=== PATIENT | female | born 1985 | race Caucasian/White ===

== ENCOUNTER 2019-01-23 09:48 | Emergency (ER) | payer OTHER ==
[2019-01-23 09:58] VITALS: BP 141/70; PULSE 96; TEMP 98.6; BMI 31.9
[2019-01-23] MEDS ORDERED: ALBUTEROL SO4 2.5/IPRATROPIUM 0.5 INH SOL 3 ML VIAL.NEB. NEB ONE ×2 (10:19→10:25)
--- NOTE | 2019-01-23 10:32 | PDOC ---
History of Present Illness - General Chief Complaint: Respiratory Stated Complaint: COUGHING Time Seen by Provider: 01/23/19 10:10 History Source: Patient Exam Limitations: No Limitations - History of Present Illness Initial Comments: 01/23/19 10:21 33 yo F w/ no sig PMHx comes in c/o 4 days of a cough with chest pain and abck pain when she coughs. (+)blood tinged sputum a couple of times, (+)dercease in appetite, decrease in PO intake, no decrease in urination, no abdominal pain, (+ )2 episodes of NBNB vomiting, 1 episode of non bloody loose stools, subjective fever, no other compliants today, no neck pain/stiffness, no rash, no known sick contacts, (+)recent travel to [place], NO. 01/23/19 10:33 Past History - Past Medical History Allergies/Adverse Reactions: Allergies Allergy/AdvReac Type Severity Reaction Status Date / Time No Known Allergies Allergy Verified 01/23/19 09:50 Home Medications: Ambulatory Orders Albuterol Sulfate Inhaler - [Ventolin HFA Inhaler -] 1 - 2 inh PO Q4H 3 Days #1 inhaler 01/23/19 Fluticasone Prop 0.05% Nasal [Flonase -] 1 spray NS DAILY 20 Days #1 bot Sodium Chloride [Saline Nasal [place]] 30 ml NS QID 4 Days #1 bot 01/23/19 CVA: Yes (tia) COPD: No - Suicide/Smoking/Psychosocial Hx Smoking History: Never smoked Have you smoked in the past 12 months: Yes Number of Cigarettes Smoked Daily: 1 (Smokes 1-2 cigarettes/month while drinking ) Hx Alcohol Use: Yes (occasionally) Drug/Substance Use Hx: No Substance Use Type: None Hx Substance Use Treatment: No Review of Systems - Review of Systems Able to Perform ROS?: Yes Constitutional: Yes: Chills, Fever, Malaise. No: Night Sweats HEENTM: No: Eye Pain, Recent change in vision, Throat Pain Respiratory: Yes: Cough. No: Shortness of Breath Cardiac (ROS): Yes: Chest Tightness. No: Palpitations ABD/GI: Yes: Vomiting. No: Diarrhea, Nausea, Abdominal cramping : No: Dysuria, Hematuria Musculoskeletal: No: Back Pain Integumentary: No: Rash Neurological: No: Headache, Numbness, Dizziness Psychiatric: Yes: Change in Appetite Endocrine: No: Unexplained Weight Loss *Physical Exam - Vital Signs Last Vital Signs Temp Pulse Resp BP Pulse Ox 98.6 F 96 H 20 141/70 99 01/23/19 09:49 01/23/19 09:49 01/23/19 09:49 01/23/19 09:49 01/23/19 09:49 - Physical Exam General Appearance: Yes: Nourished. No: Apparent Distress HEENT: positive: DEIDRE, Normal ENT Inspection, Muffled/Hoarse voice (hoarse), Pharyngeal Erythema. negative: Pale Conjunctivae, Scleral Icterus (R), Scleral Icterus (L), Tonsillar Exudate, Tonsillar Erythema, TM Erythema Neck: positive: Supple. negative: Tender, Decreased range of motion, Tender midline Respiratory/Chest: positive: Lungs Clear, Normal Breath Sounds. negative: Respiratory Distress, Accessory Muscle Use, Decreased Breath Sounds, Wheezing Cardiovascular: positive: Regular Rhythm, Regular Rate Gastrointestinal/Abdominal: positive: Normal Bowel Sounds, Soft. negative: Tender Musculoskeletal: positive: Normal Inspection. negative: CVA Tenderness, Decreased Range of Motion Extremity: positive: Normal Capillary Refill, Normal Inspection, Normal Range of Motion. negative: Tender, Pedal Edema Integumentary: positive: Normal Color, Dry. negative: Jaundice, Rash Neurologic: positive: Fully Oriented, Alert, Normal Mood/Affect Moderate Sedation - Procedure Monitoring Vital Signs: Procedure Monitoring Vital Signs Temperature 98.6 F 01/23/19 09:49 Pulse Rate 96 H 01/23/19 09:49 Respiratory Rate 20 01/23/19 09:49 Blood Pressure 141/70 01/23/19 09:49 O2 Sat by Pulse Oximetry (%) 99 01/23/19 09:49 ED Treatment Course - RADIOLOGY Radiology Studies Ordered: Category Date Time Status CHEST PA & LAT [RAD] Stat Radiology 01/23/19 10:19 Ordered Medical Decision Making - Medical Decision Making 01/23/19 10:35 33 yo w/ viral syndrome. R?O bronchitis Vs pneumonia. WIll do a neb trial, CXR and reassess 01/23/19 11:45 Pt feels a lot better after richie, able to breath better, no chest tightness. CXR no pneumonia WIll discharge with albuterol flonase, saline, PMD follow up Return for worsening/concerning symptoms Pt verbalizes understanding and agrees with plan *DC/Admit/Observation/Transfer Diagnosis at time of Disposition: Bronchitis - Discharge Dispostion Disposition: HOME Condition at time of disposition: Stable - Prescriptions Prescriptions: Albuterol Sulfate Inhaler - [Ventolin HFA Inhaler -] 1 - 2 inh PO Q4H 3 Days #1 inhaler Fluticasone Prop 0.05% Nasal [Flonase -] 1 spray NS DAILY 20 Days #1 bot Sodium Chloride [Saline Nasal [place]] 30 ml NS QID 4 Days #1 bot - Referrals - Patient Instructions Printed Discharge Instructions: DI for Acute Bronchitis Additional Instructions: Rest and drink plenty of fluids. Return for worsening/concerning symptoms. FOllow up with your regular doctor in 1-2 days. - Post Discharge Activity
== END 2019-01-23 11:46 | disposition home or self-care (01) ==
LOC: JERFT 09:48 → JER 09:48 → JERFT 11:46
PROC: 3E0F7GC Introduction of Other Therapeutic Substance into Respiratory Tract, Via Natural or Artificial Opening (ICD-10-PCS; principal; 2019-01-23)
DX: J40 Bronchitis, not specified as acute or chronic (principal)
CPT/HCPCS: 71046-TC-FY; 84703; 94640; 99281-25

== ENCOUNTER 2024-09-20 17:57 | Emergency (ER) | payer BC, OTHER ==
[2024-09-20 18:16] VITALS: TEMP 98.6; BMI 34.5
[2024-09-20 20:02] VITALS: BP 127/78; PULSE 80; RESP 16
[2024-09-20 20:24] LABS: POTASSIUM 5.3 mmol/L (3.5-5.1)
[2024-09-20 20:26] LABS: BLOOD UREA NITROGEN 9.1 mg/dL (7-18); CALCIUM 9.2 mg/dL (8.5-10.1); MAGNESIUM 2.1 mg/dL (1.8-2.4)
[2024-09-20 20:30] LABS: CREATININE 0.9 mg/dL (0.55-1.3); PHOSPHOROUS 3.5 mg/dL (2.5-4.9)
[2024-09-20] MEDS ORDERED: KETOROLAC TROMETHAMINE 15 MG/ML VIAL ONE (20:42)
[2024-09-20] MEDS ORDERED: PROCHLORPERAZINE INJECTION 10 MG/2 ML VIAL ONE (20:42)
[2024-09-20] MEDS ORDERED: ACETAMINOPHEN 325 MG TABLET (FP) ONE (20:42)
[2024-09-20] MEDS: PROCHLORPERAZINE INJECTION 10 MG/2 ML VIAL IVPB ONE (20:50)
[2024-09-20] MEDS: ACETAMINOPHEN 500 MG TABLET (FP) PO ONE (20:50)
[2024-09-20] MEDS: KETOROLAC TROMETHAMINE 30 MG/1 ML VIAL IVPUSH ONE (20:50)
[2024-09-20 20:51] LABS: HEMATOCRIT 40.1 % (32.4-45.2); HEMOGLOBIN 13.6 GM/dL (10.7-15.3); LYMPH % 31.1 % (8-40); MCH 30.3 pg (25.7-33.7); MCHC 33.9 g/dl (32.0-36.0); MEAN CELL VOLUME 89.6 fl (80-96); MONO % 6.2 % (3.8-10.2); NEUT % 58.7 % (42.8-82.8); PLATELET COUNT 350 10^3/uL (134-434); RBC 4.48 M/mm3 (3.60-5.2); RDW 12.9 % (11.6-15.6); WHITE BLOOD COUNT 11.8 K/mm3 (4.0-10.0)
== END 2024-09-20 21:11 | disposition home or self-care (01) ==
LOC: JER 17:57
PROC: 3E0333Z Introduction of Anti-inflammatory into Peripheral Vein, Percutaneous Approach (ICD-10-PCS; principal; 2024-09-20)
DX: G43.909 Migraine, unspecified, not intractable, without status migrainosus (principal); H53.8 Other visual disturbances; R06.02 Shortness of breath; R53.1 Weakness; Z20.822 Contact with and (suspected) exposure to COVID-19
CPT/HCPCS: 0241U-QW; 36415; 70450-TC; 76937; 80048; 83735; 84100; 84703; 85025; 93005; 93010; 99285-25